=== PATIENT | female | born 1950 | race Caucasian/White ===

== ENCOUNTER 2020-04-24 11:08 | Emergency (ER) | payer MEDICARE, SELFPAY ==
[2020-04-24] VITALS (22 sets, daily range): BP systolic 156–184; BP diastolic 83–88; PULSE 72–98; RESP 20–33; TEMP 36.5–37.3; O2SAT 96–100
--- NOTE | 2020-04-24 11:00 | RT.EKG_ITS ---
APPROVED REPORT Exam: Resting ECG Patient Location: E HR:85 bpm ECG Measurements Heart Rate 85 AXIS NE 104 P 79 QRSd 82 QRS 70 QT 364 T 61 QTc 434 Conclusion Sinus rhythm...normal P axis, V-rate 60- [address] depression in II, III, aVF, V4-6. No acute ST elevation.
--- NOTE | 2020-04-24 11:07 | ED.GENADUL_ITS ---
Discharge Plan Disposition Patient Disposition: HOME Condition: Improving Discharge Details Chief Complaint: Nk/Back Pain Clinical Impression: Acute exacerbation of chronic low back pain, Dizziness Primary Care Provider: None,None ED Provider: Loulou Marquez Home Meds and New Rx's Prescriptions: New oxycodone 5 mg tablet 5 mg PO Q6H PRN (Reason: pain) Qty: 10 RF: 0 methocarbamol 500 mg tablet 500 mg PO Q6H PRN (Reason: muscle spasm) Qty: 14 RF: 0 lidocaine [Lidoderm] 5 % adhesive patch,medicated 1 patch TP DAILY PRN (Reason: pain) Qty: 15 RF: 0 Continued metformin 500 mg Tablet 500 mg PO DAILY RF: 0 trazodone 100 mg Tablet 100 mg PO QHS RF: 0 pantoprazole 40 mg Tablet,Delayed Release (Dr/Ec) 40 mg PO DAILY RF: 0 meclizine 25 mg Tablet,Chewable 25 mg PO DAILY PRNRF: 0 Xarelto 20 mg Tablet 20 mg PO QPM RF: 0 Trelegy Ellipta 100-62.5-25 mcg Blister With Device 1 inh INHALATION DAILY RF: 0 Discharge Instructions Instructions: Low Back Strain (ED), Dizziness (ED) Additional Instructions: Drink plenty of fluids and get plenty of rest. Take the oxycodone and methocarbamol as needed and directed for pain. You will receive a call from care management regarding a follow-up appointment with a primary care doctor to establish care. Return immediately to the emergency department if you develop any worsening or new concerning symptoms. Discharge Data Discharge Date/Time-TO BE ENTERED AT DEPARTURE: 04/24/20 17:55 Discharge Physician: Loulou Marquez Medical Decision Making 1115 -- 69-year-old female who recently moved here from [place] 5 days ago presents for acute exacerbation of her chronic low back pain and dizziness over the past few days. BP mildly hypertensive. She appears slightly uncomfortable but nontoxic. EKG notes a rate of 85, sinus, less than [address] depression in inferior lateral leads but no acute ST elevation. Her back is nontender without evidence of rash or trauma. She has no focal deficits. Her mucous membranes are dry. Differential diagnosis includes dehydration, electrolyte abnormality, arrhythmia, ACS, PE, ruptured AAA, acute on chronic back pain. We will check screening labs, urinalysis, CT head, chest abdomen and pelvis and give morphine and fluids and reassess. 1515 --labs and imaging reviewed. White blood cell count 13. Troponin negative. Urinalysis negative for infection. CT head and CT chest and abdomen negative for acute findings. AAA noted to be 4.2 cm. No evidence of PE. Patient reassessed and still complaining of lower back pain and some dizziness. Will finish liter of IV fluids, give another dose of morphine and tray of food and reassess. 1720 --patient reassessed. She was able to ambulate and denied any complaint of chest pain, shortness of breath and admitted to improvement of back pain. She feels much better and is requesting to go home. Patient placed on care management list to establish care with a PCP. She was given prescriptions for home. Usual and customary return precautions given prior to discharge. Medical Records Medical records reviewed: Yes I reviewed the patient's medical records. Imaging Data Radiologic Study: Radiologist's impression: CT HEAD WO CLINICAL HISTORY: dizziness, r/o acute cva. TECHNIQUE: Imaging Protocol: Axial computed tomography images with coronal and sagittal reformatted images were created and reviewed COMPARISON: No exams were available for comparison FINDINGS: The ventricular system is normal in appearance. No evidence of acute intracranial hemorrhage, mass effect, or midline shift. The orbital structures are unremarkable. The temporal bone structures appear intact. Calvarium: Normal. Visualized Paranasal sinuses/Mastoids: Clear. IMPRESSION: Normal cranial CT. CT THORAX ABD/PEL CTA CLINICAL HISTORY: back pain, h/o AAA TECHNIQUE: COMPARISON: No exams were available for comparison FINDINGS: CT angiography of chest abdomen and pelvis was performed with bolus infusion of 100 cc of Omnipaque 350. There are severe atheromatous changes thoracic and abdominal aorta. No thoracic aortic dissection or aneurysm. Suspect high-grade stenosis of left vertebral artery origin not ideally visualized. Remainder of the major vascular branches aortic arch appear grossly well maintained. No evidence of pulmonary embolic disease. No mediastinal or hilar adenopathy. Severe COPD noted. Tracheobronchial tree appears intact. No pleural effusion or pleural-based mass. There is no evidence pulmonary consolidation or mass. There is 42 millimeter in diameter infrarenal abdominal aortic aneurysm with significant mural thrombus. 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 Remainder of the major visceral branches appe ar fairly well maintained. The liver and spleen are grossly unremarkable. No gallbladder or bile duct abnormality by CT criteria. Pancreas is unremarkable. Adrenals appear normal bilaterally. There appears to be renal cortical thinning bilaterally. No significant abdominal wall hernia. No significant abdominal or pelvic adenopathy. Appendix is normal in appearance. No evidence of bowel obstruction or diverticulitis. Bilateral hip replacements noted. IMPRESSION: Severe pulmonary central lobular emphysematous change. No evidence of pulmonary embolic disease or pulmonary consolidation. 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 Lab Data Lab results reviewed: Yes I reviewed the patient's lab results. Labs: Laboratory Tests Range/Units 04/24/20 04/24/20 04/24/20 12:00 12:00 12:00 WBC (4.4-10.8) 10^3/uL 13.13 H RBC (3.93-5.22) 10^6/uL 4.36 Hgb (11.2-15.7) g/dL 12.3 Hct (36.0-46.0) % 40.9 MCV (80-95) fL 93.8 MCH (27.0-33.0) pg 28.2 MCHC (32.0-36.0) % 30.1 L RDW (11.7-14.6) % 13.3 Plt Count (130-400) 10^3/uL 286 MPV (8.0-11.0) fL 9.3 Immature Gran % 0.5 Neutrophils % 76.9 Lymphocytes % 12.6 Monocytes % 7.2 Eosinophils % 2.6 Basophils % 0.2 Absolute Neutrophils (1.2-6.7) 10^3/uL 10.10 H Absolute Lymphocytes (1.2-3.4) 10^3/uL 1.65 Absolute Monocytes (0.1-0.8) 10^3/uL 0.95 H Absolute Eosinophils (0.0-0.7) 10^3/uL 0.34 Absolute Basophils (0.0-0.2) 10^3/uL 0.03 PT (9.3-11.0) sec 10.4 INR (0.9-1.1) 1.0 APTT (21.0-31.4) sec 21.9 Sodium (136-145) mmol/L 141 Potassium (3.5-5.1) mmol/L 4.2 Chloride (98-107) mmol/L 106 Carbon Dioxide (21.0-32.0) mmol/L 26.2 Anion Gap (3-11) mmol/L 8.8 BUN (7-18) mg/dL 23 H Creatinine (0.55-1.02) mg/dL 1.12 H Estimated GFR/1.73 m2 (mL/min/1.73m2) 47.96 Glucose (74-106) mg/dL 104 Calcium (8.5-10.1) mg/dL 8.9 Magnesium (1.8-2.4) mg/dL 1.9 Total Bilirubin (0.2-1.0) mg/dL 0.3 AST (15-37) U/L 35 ALT (14-59) U/L 19 Alkaline Phosphatase (46-116) U/L 94 Troponin I (<0.06) ng/mL < 0.05 Total Protein (6.4-8.2) g/dL 6.8 Albumin (3.4-5.0) g/dL 3.4 Urine Color (Yellow) Urine Clarity (Clear) Urine pH (5-8) Ur Specific [place] (1.005-1.025) Urine Protein (Negative) mg/dL Urine Ketones (Negative) mg/dL Urine Blood (Negative) Urine Nitrite (Negative) Urine Bilirubin (Negative) Urine Urobilinogen (Up TO 0.2) EU/dL Ur Leukocyte Esterase (Negative) Urine RBC (0-2) HPF Urine WBC (0-5) HPF Ur Epithelial Cells (Negative) HPF Urine Crystals (Negative) HPF Urine Bacteria (Negative) HPF Urine Casts (Negative) LPF Urine Mucus (Negative) Urine Other (Negative) Ur Culture Indicated? Urine Glucose (Negative) mg/dL Range/Units 04/24/20 12:58 WBC (4.4-10.8) 10^3/uL RBC (3.93-5.22) 10^6/uL Hgb (11.2-15.7) g/dL Hct (36.0-46.0) % MCV (80-95) fL MCH (27.0-33.0) pg MCHC (32.0-36.0) % RDW (11.7-14.6) % Plt Count (130-400) 10^3/uL MPV (8.0-11.0) fL Immature Gran % Neutrophils % Lymphocytes % Monocytes % Eosinophils % Basophils % Absolute Neutrophils (1.2-6.7) 10^3/uL Absolute Lymphocytes (1.2-3.4) 10^3/uL Absolute Monocytes (0.1-0.8) 10^3/uL Absolute Eosinophils (0.0-0.7) 10^3/uL Absolute Basophils (0.0-0.2) 10^3/uL PT (9.3-11.0) sec INR (0.9-1.1) APTT (21.0-31.4) sec Sodium (136-145) mmol/L Potassium (3.5-5.1) mmol/L Chloride (98-107) mmol/L Carbon Dioxide (21.0-32.0) mmol/L Anion Gap (3-11) mmol/L BUN (7-18) mg/dL Creatinine (0.55-1.02) mg/dL Estimated GFR/1.73 m2 (mL/min/1.73m2) Glucose (74-106) mg/dL Calcium (8.5-10.1) mg/dL Magnesium (1.8-2.4) mg/dL Total Bilirubin (0.2-1.0) mg/dL AST (15-37) U/L ALT (14-59) U/L Alkaline Phosphatase (46-116) U/L Troponin I (<0.06) ng/mL Total Protein (6.4-8.2) g/dL Albumin (3.4-5.0) g/dL Urine Color (Yellow) Yellow Urine Clarity (Clear) Clear Urine pH (5-8) 5.5 Ur Specific [place] (1.005-1.025) >= 1.030 H Urine Protein (Negative) mg/dL Negative Urine Ketones (Negative) mg/dL Negative Urine Blood (Negative) Trace-intact H Urine Nitrite (Negative) Negative Urine Bilirubin (Negative) Negative Urine Urobilinogen (Up TO 0.2) EU/dL 0.2 Ur Leukocyte Esterase (Negative) Negative Urine RBC (0-2) HPF 3-5 H Urine WBC (0-5) HPF Negative Ur Epithelial Cells (Negative) HPF Rare Urine Crystals (Negative) HPF Negative Urine Bacteria (Negative) HPF Rare Urine Casts (Negative) LPF Negative Urine Mucus (Negative) Negative Urine Other (Negative) Negative Ur Culture Indicated? No Urine Glucose (Negative) mg/dL Negative ECG Data Attestation: I personally reviewed and interpreted this ECG (s) as follows: Interpretation: Rate of 85, sinus, less than [address] depression in 2 3 aVF and V3 through V6. No acute ST elevation. DE 104. QRS 82. QTc 434. HPI General Mode of arrival: EMS . Date/Time Provider Initiated Documentation: 04/24/20 11:09 . Limitations to Documentation: no limitations . Information obtained by: patient . HPI Narrative: Patient is a 69-year-old female with a history of chronic back pain for the past 20 years, known AAA and COPD who presents for back pain and dizziness that has been ongoing for weeks, worse today. Patient states she recently drove from [place] last week and has been here for the past 5 days. Patient states she drove from [place] to be a peer with her son indefinitely the remaining years of her life. She states on her way up from [place] she had a COVID test in [place] and [place] both of which were negative. She states this was done because she was having shortness of breath and dizziness. She states she was admitted to a hospital in [place] in November and diagnosed with bronchitis and PE. She states she is taking Xarelto regularly. She states she also had been on Percocet 10 mg 3 times a day for the past 18 years for her chronic back pain but this was stopped 2 months ago. She states she has been taking Tylenol without relief. She states she feels that her back pain is consistent with her chronic back pain which is located across her lower back and radiates down both of her legs which she is had for several years. She denies any bowel or bladder incontinence. She denies any paresthesias or saddle anesthesia. She states she has been eating normally but feels she may be not drinking as much as usual and may be dehydrated. She also admits to intermittent lightheadedness but denies any chest pain. She states she has shortness of breath when she gets up and walks around but thinks this may be due to her back pain. She denies any fever, cough, vomiting, diarrhea, urinary symptoms or abdominal pain. She is also on 2 L of nasal cannula oxygen throughout the day for her COPD. Related Data Home Medications Medication Instructions Recorded Confirmed Trelegy Ellipta 1 inh INHALATION DAILY 04/24/20 04/24/20 Xarelto 20 mg PO QPM 04/24/20 04/24/20 lidocaine [Lidoderm] 1 patch TP DAILY PRN #15 each 04/24/20 meclizine 25 mg PO DAILY PRN 04/24/20 04/24/20 metformin 500 mg PO DAILY 04/24/20 04/24/20 methocarbamol 500 mg PO Q6H PRN #14 tab 04/24/20 oxycodone 5 mg PO Q6H PRN #10 tab 04/24/20 pantoprazole 40 mg PO DAILY 04/24/20 04/24/20 trazodone 100 mg PO QHS 04/24/20 04/24/20 Previous Rx's Medication Instructions Recorded lidocaine [Lidoderm] 1 patch TP DAILY PRN #15 each 04/24/20 methocarbamol 500 mg PO Q6H PRN #14 tab 04/24/20 oxycodone 5 mg PO Q6H PRN #10 tab 04/24/20 Allergies Allergy/AdvReac Type Severity Reaction Status Date / Time No Known Allergies Allergy Unverified 04/24/20 14:40 Review of Systems All systems reviewed & are unremarkable except as noted in HPI and below Constitutional Constitutional: Reports as per HPI, Denies chills and Denies fever(s) Eyes Eyes: Denies blurry vision ENT Ears, Nose, Mouth, and Throat: Reports dizziness, Denies sore throat and Denies throat swelling Cardiovascular Cardiovascular: Denies chest pain and Reports dyspnea Respiratory Respiratory: Denies cough and Reports dyspnea Gastrointestinal Gastrointestinal: Denies abdominal pain, Denies diarrhea and Denies vomiting Genitourinary Genitourinary: Denies hematuria and Denies dysuria Musculoskeletal Musculoskeletal: Reports back pain and Denies numbness Integumentary/Breasts Skin/Breast: Denies lesions and Denies rash Neurologic Neurologic: Reports dizziness, Denies localized weakness and Denies numbness Allergic/Immunologic Allergic/Immunologic: Denies throat swelling [facility] Medical History (Updated 04/24/20 @ 16:52 by Loulou Marquez DO) AAA (abdominal aortic aneurysm) without rupture (Acute) Chronic back pain (Acute) COPD (chronic obstructive pulmonary disease) (Chronic) Surgical History (Updated 04/24/20 @ 13:32 by Loulou Marquez DO) History of hip replacement (Chronic) History of knee replacement (Chronic) Exam Const General: cooperative and no acute distress Orientation: alert, awake and oriented x3 HENMT Head: normal to inspection Ears: hearing grossly normal bilaterally, external ears normal and TM's normal bilaterally General nose exam: external nose normal Face and sinus: normal facial exam Mouth: mucous membranes dry Throat: posterior oropharynx normal Eyes General: appearance normal, both eyes and all related structures Eyelids: eyelids normal Pupils: PERRL EOM: EOM intact bilaterally Neck Neck: normal visual inspection Lymphatic: no lymphadenopathy noted Chest Chest: normal inspection of the chest Resp Effort & Inspection: normal respiratory effort and able to speak in complete sentences Auscultation: clear to auscultation bilaterally Cardio Rate: regular rate Rhythm: regular rhythm GI Inspection: normal to inspection Palpation: soft, not firm, no guarding, no hepatosplenomegaly, no masses and nontender Auscultation: normal bowel sounds Back/Spine/Pelvis Thoracic/Lumbar Spine: thoracic and lumbar spine normal to inspection, No paraspinal tenderness, No thoracic spinal tenderness and No lumbar spinal tenderness Pelvis: no pain with anterior-posterior compression Skin General skin exam: no rashes or lesions noted Neuro General: patient alert, patient awake and CN's II-XI intact bilaterally Cognition: normal cognition Speech: speech normal Gait: normal gait Motor: muscle tone normal throughout and strength 5/5 throughout Sensory Exam: no sensory deficits noted Extrem General: normal to inspection, full ROM and capillary refill normal Psych Appearance: grossly normal Mental Status: mental status grossly normal Speech and Movement: speech and movement normal Affect: normal affect Thought Process: normal
--- NOTE | 2020-04-24 11:30 | DI.CT_ITS ---
EXAM: CT HEAD WO CLINICAL HISTORY: dizziness, r/o acute cva. TECHNIQUE: Imaging Protocol: Axial computed tomography images with coronal and sagittal reformatted images were created and reviewed COMPARISON: No exams were available for comparison FINDINGS: The ventricular system is normal in appearance. No evidence of acute intracranial hemorrhage, mass effect, or midline shift. The orbital structures are unremarkable. The temporal bone structures appear intact. Calvarium: Normal. Visualized Paranasal sinuses/Mastoids: Clear. IMPRESSION: Normal cranial CT. RADIATION DOSE DELIVERED: 643.13mGy.cm Total DLP DATA REPOSITORY: All CT scans at this facility are submitted to the National Radiology Data Registry (NRDR) Dose Index Registry (DIR) with the [employer] (ACR). RADIATION OPTIMIZATION: All CT scans at this facility use at least one of these dose optimization te chniques: automated exposure control; mA and/or kV adjustment per patient size (includes targeted exa ms where dose is matched to clinical indication); or iterative reconstruction.
[2020-04-24] MEDS: Normal Saline 500 ML IV ×2 (12:06→15:44)
[2020-04-24 12:09] LABS: Abs Immature Grans 0.07 10^3/uL (0.0-0.06); Absolute Basophil Count 0.03 10^3/uL (0.0-0.2); Absolute Eosinophil Count 0.34 10^3/uL (0.0-0.7); Absolute Lymphocyte Count 1.65 10^3/uL (1.2-3.4); Absolute Monocyte Count 0.95 10^3/uL (0.1-0.8); Basophils % 0.2; Eosinophils % 2.6; HCT 40.9 % (36.0-46.0); HGB 12.3 g/dL (11.2-15.7); Immature Grans % 0.5; Lymphocytes % 12.6; MCH 28.2 pg (27.0-33.0); MCHC 30.1 % (32.0-36.0); MCV 93.8 fL (80-95); MPV 9.3 fL (8.0-11.0); Monocytes % 7.2; Neutrophils % 76.9; Nucleated RBC 0 %; Platelet Count 286 10^3/uL (130-400); RBC 4.36 10^6/uL (3.93-5.22); RDW 13.3 % (11.7-14.6); RDW-SD 45.5 fL; WBC 13.13 10^3/uL (4.4-10.8)
[2020-04-24 12:25] LABS: PTT Activated 21.9 sec (21.0-31.4); Prothrombin Time 10.4 sec (9.3-11.0)
[2020-04-24 12:32] LABS: ALT 19 U/L (14-59); AST 35 U/L (15-37); Albumin 3.4 g/dL (3.4-5.0); Alkaline Phosphatase 94 U/L (46-116); Anion Gap 8.8 mmol/L (3-11); Bilirubin, Total 0.3 mg/dL (0.2-1.0); CO2 26.2 mmol/L (21.0-32.0); CREATININE 1.12 mg/dL (0.55-1.02); Calcium 8.9 mg/dL (8.5-10.1); Chloride 106 mmol/L (98-107); Estimated GFR 47.96 (mL/min/1.73m2); Glucose 104 mg/dL (74-106); Magnesium 1.9 mg/dL (1.8-2.4); Potassium 4.2 mmol/L (3.5-5.1); Sodium 141 mmol/L (136-145); Total Protein 6.8 g/dL (6.4-8.2)
[2020-04-24 12:33] LABS: Troponin I < 0.05 ng/mL (<0.06)
[2020-04-24 12:39] LABS: BUN 23 mg/dL (7-18)
[2020-04-24 13:09] LABS: Bilirubin Negative (Negative); Blood Trace-intact (Negative); Clarity Clear (Clear); Glucose Negative (Negative); Ketones Negative (Negative); Leukocyte Esterase Negative (Negative); Nitrite Negative (Negative); Specific Gravity >= 1.030 (1.005-1.025); Urobilinogen 0.2 EU/dL (Up TO 0.2); pH 5.5 (5-8)
[2020-04-24 13:19] LABS: Bacteria Rare HPF (Negative); C & S Indicated? No; Casts Negative LPF (Negative); Crystals Negative HPF (Negative); Epithelial Cells Rare HPF (Negative); Mucus Negative (Negative); Other Cells Negative (Negative); WBC Negative HPF (0-5)
[2020-04-24] MEDS: Omnipaque 350 MG/ML 100 ML BTL IJ (13:24)
[2020-04-24] MEDS: Normal Saline - Diluent 50 ML VIAL IV (13:25)
--- NOTE | 2020-04-24 13:43 | DI.CT_ITS ---
EXAM: CT THORAX ABD/PEL CTA CLINICAL HISTORY: back pain, h/o AAA TECHNIQUE: COMPARISON: No exams were available for comparison FINDINGS: CT angiography of chest abdomen and pelvis was performed with bolus infusion of 100 cc of Omnipaque 3 50. There are severe atheromatous changes thoracic and abdominal aorta. No thoracic aortic dissection or aneurysm. Suspect high-grade stenosis of left vertebral artery origin not ideally visualized. Inez pankaj of the major vascular branches aortic arch appear grossly well maintained. No evidence of pulmonary embolic disease. No mediastinal or hilar adenopathy. Severe COPD noted. T racheobronchial tree appears intact. No pleural effusion or pleural-based mass. There is no evidence pulmonary consolidation or mass. There is 42 millimeter in diameter infrarenal abdominal aortic aneurysm with significant mural thromb us. 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 Remainder o f the major visceral branches appear fairly well maintained. The liver and spleen are grossly unremarkable. No gallbladder or bile duct abnormality by CT criteri a. Pancreas is unremarkable. Adrenals appear normal bilaterally. There appears to be renal cortica l thinning bilaterally. No significant abdominal wall hernia. No significant abdominal or pelvic adenopathy. Appendix is normal in appearance. No evidence of bowel obstruction or diverticulitis. Bilateral hip replacements noted. IMPRESSION: Severe pulmonary central lobular emphysematous change. No evidence of pulmonary embolic disease or pulmonary consolidation. Widespread atheromatous disease, 42 millimeter in diameter abdominal aortic aneurysm infrarenal, sten oses of origin of celiac trunk and probably of left vertebral artery origin noted.
[2020-04-24] MEDS: Lidocaine 5% Patch 1 PATCH TP (13:59)
[2020-04-24] MEDS: diazePAM 5 MG TAB PO (14:00)
--- NOTE | 2020-04-24 17:23 | NUR.NOTE ---
Referral to Care Management to establish pcp.Nursing Note:
--- NOTE | 2020-04-25 09:22 | CMPROGNOTE_ITS ---
- If Service Date Differs Date of service: 04/25/20 Time of Service: 09:22 Care Management Progress Note At ED provider's request, CM coordinates a referral to SUNNI Garsia, on-call doc, of [facility] to assist Nicol in obtaining a follow-up appointment and establishing care with a PCP.
== END 2020-04-24 17:55 | disposition home or self-care (01) ==
PROVIDERS: Emergency Provider Physician Assistant
DX: M54.5 Low back pain (principal); G89.29 Other chronic pain; R42 Dizziness and giddiness; I71.4 Abdominal aortic aneurysm, without rupture; Z79.01 Long term (current) use of anticoagulants; Z86.711 Personal history of pulmonary embolism; J44.9 Chronic obstructive pulmonary disease, unspecified; Z99.81 Dependence on supplemental oxygen
CPT/HCPCS: 36415; 71275; 74177; 80053; 93005; 96361; 96374; 96376; 99285; 70450; 81003; 81015; 83735; 84484; 85025; 85610; 85730; 93010; J3490

== ENCOUNTER 2020-04-26 08:20 | Outpatient (CLI) | payer MEDICARE, SELFPAY ==
[2020-04-27 18:30] LABS: COVID-19 RT-PCR Result NEGATIVE (Negative)
== END 2020-04-26 08:40 ==
PROVIDERS: Visit Provider Nurse Practitioner Family
DX: Z11.59 Encounter for screening for other viral diseases (principal)
CPT/HCPCS: U0003

== ENCOUNTER 2020-04-30 07:07 | Emergency (ER) | payer MEDICARE, SELFPAY ==
[2020-04-30] VITALS (43 sets, daily range): BP systolic 120–161; BP diastolic 51–105; PULSE 80–95; RESP 17–37; TEMP 36.6–36.7; O2SAT 97–100
--- NOTE | 2020-04-30 07:24 | ED.GENADUL_ITS ---
Discharge Plan Disposition Patient Disposition: HOME Condition: Improving Discharge Details Chief Complaint: Nk/Back Pain Clinical Impression: Chronic back pain, Vomiting and diarrhea Primary Care Provider: None,None ED Provider: Loulou Marquez Home Meds and New Rx's Prescriptions: New prednisone 20 mg tablet 60 mg PO DAILY 4 Days Qty: 12 RF: 0 ondansetron 4 mg tablet,disintegrating 4 mg PO TID PRN (Reason: nausea and vomiting) Qty: 6 RF: 0 Continued metformin 500 mg Tablet 500 mg PO DAILY RF: 0 trazodone 100 mg Tablet 100 mg PO QHS RF: 0 pantoprazole 40 mg Tablet,Delayed Release (Dr/Ec) 40 mg PO DAILY RF: 0 meclizine 25 mg Tablet,Chewable 25 mg PO DAILY PRNRF: 0 Xarelto 20 mg Tablet 20 mg PO QPM RF: 0 Trelegy Ellipta 100-62.5-25 mcg Blister With Device 1 inh INHALATION DAILY RF: 0 methocarbamol 500 mg tablet 500 mg PO Q6H PRN (Reason: muscle spasm) Qty: 14 RF: 0 lidocaine [Lidoderm] 5 % adhesive patch,medicated 1 patch TP DAILY PRN (Reason: pain) Qty: 15 RF: 0 Discharge Instructions Instructions: Acute Nausea and Vomiting (ED), Acute Diarrhea (ED), Chronic Back Pain (DC) Additional Instructions: Drink plenty of fluids and get plenty of rest. Take Tylenol as needed directed for pain. Take the prednisone until finished. Do the Zofran as needed and directed for nausea and vomiting. You will receive a call from care management regarding a follow-up appointment with a primary care doctor. You will also receive a call from the pain clinic regarding follow-up. A referral for home health was made. They will come to evaluate you at home regarding your needs. Return immediately to the emergency department if you develop any worsening or new concerning symptoms. Referrals: PAIN CLINIC,[facility] [OTHER] - 1 week Discharge Data Discharge Date/Time-TO BE ENTERED AT DEPARTURE: 04/30/20 12:57 Discharge Physician: Loulou Marquez Medical Decision Making <Scott Barahona MD - Last Filed: 04/30/20 07:35> 69 yo female with hx of PE on xarelto, chronic low back pain for which she was on oxycodone and suboxone but hasn't had these in two months, who just moved here from [place] within the past few weeks comes in with pain in the lower back and legs typical of her chronic pain and unchanged. Was seen in the ED on 04/24 and had labs and ct imaging which did not show any acute findings. She was d/c'd and referred for a pcp but continues to have pain so came here. She denies falls, chest pain, fevers, urinary renetion. She has no focal motor or sensation deficits and is able to bear weight. No saddle anesthesia and normal reflexes, no findings to suggest cauda equina or sea. She has no abdominal tednerness. She has no cva tenderness, no stepoffs and localizes the pain throughout the lumbar region. Has no rashes or warmth. no findings on history or exam to suggest infectious etiology such as osteo. She had recent ct imaging so do not feel additional imaging indicated at this time. Suspect her pain is due to being on opiates chronically and advised we can't treat chronic pain with opiates through the ED. She is willing to try prednisone as this could be related to arthritis and given she is on xarelto limits her ability to take nsaids. She is requesting to speak with CM for discussion on referrals to pcp, pain clinic and also possible home health pt signed out to oncoming provider pending CM review Differential Diagnosis Differential Diagnosis: muscle spasm, chronic pain, arthritis <Loulou Marquez DO - Last Filed: 04/30/20 16:31> 0800 --please see Dr. Barahona's note for initial presentation, exam and plan. Case endorsed for patient to follow-up with care management regarding assistance with PCP, pain clinic and home health. 0930 --care management discussed with patient at bedside. A referral to Dr. Laila Fuentes is in process. An order for pain clinic consultation was made. Home health paperwork completed. Prior to discharge, patient stated that she was really here for vomiting and diarrhea. Triage notes that patient was here for her chronic back pain and then vomited once in route. She states she had one episode of bilious vomiting and one episode of loose brown stool. She states she mainly came here for concern for dehydration. She was here 6 days ago and had labs, urinalysis and imaging all of which were negative for acute findings. She has an IV, will give a dose of Zofran, fluids, repeat labs and urinalysis and reassess. 1230 --labs and urinalysis reviewed and unremarkable. Patient was able to eat and feels better. We will send also with a prescription for Zofran. Advised to follow up with the primary care doctor for re-evaluation. Usual and customary return precautions given prior to discharge. Medical Records Medical records reviewed: Yes I reviewed the patient's medical records. Lab Data Lab results reviewed: Yes I reviewed the patient's lab results. Labs: Laboratory Tests Range/Units 04/30/20 04/30/20 04/30/20 10:20 10:20 12:10 WBC (4.4-10.8) 10^3/uL 9.19 RBC (3.93-5.22) 10^6/uL 4.02 Hgb (11.2-15.7) g/dL 11.4 Hct (36.0-46.0) % 37.1 MCV (80-95) fL 92.3 MCH (27.0-33.0) pg 28.4 MCHC (32.0-36.0) % 30.7 L RDW (11.7-14.6) % 13.2 Plt Count (130-400) 10^3/uL 250 MPV (8.0-11.0) fL 9.1 Immature Gran % 0.4 Neutrophils % 89.6 Lymphocytes % 4.9 Monocytes % 2.5 Eosinophils % 2.4 Basophils % 0.2 Absolute Neutrophils (1.2-6.7) 10^3/uL 8.23 H Absolute Lymphocytes (1.2-3.4) 10^3/uL 0.45 L Absolute Monocytes (0.1-0.8) 10^3/uL 0.23 Absolute Eosinophils (0.0-0.7) 10^3/uL 0.22 Absolute Basophils (0.0-0.2) 10^3/uL 0.02 Sodium (136-145) mmol/L 139 Potassium (3.5-5.1) mmol/L 4.3 Chloride (98-107) mmol/L 103 Carbon Dioxide (21.0-32.0) mmol/L 28.8 Anion Gap (3-11) mmol/L 7.2 BUN (7-18) mg/dL 14 Creatinine (0.55-1.02) mg/dL 1.20 H Estimated GFR/1.73 m2 (mL/min/1.73m2) 44.29 Glucose (74-106) mg/dL 126 H Calcium (8.5-10.1) mg/dL 9.4 Total Bilirubin (0.2-1.0) mg/dL 0.3 AST (15-37) U/L 36 ALT (14-59) U/L 21 Alkaline Phosphatase (46-116) U/L 102 Total Protein (6.4-8.2) g/dL 7.5 Albumin (3.4-5.0) g/dL 3.2 L Urine Color (Yellow) Yellow Urine Clarity (Clear) Clear Urine pH (5-8) 6.0 Ur Specific [place] (1.005-1.025) 1.025 Urine Protein (Negative) mg/dL Negative Urine Ketones (Negative) mg/dL Negative Urine Blood (Negative) Negative Urine Nitrite (Negative) Negative Urine Bilirubin (Negative) Negative Urine Urobilinogen (Up TO 0.2) EU/dL 0.2 Ur Leukocyte Esterase (Negative) Negative Urine Glucose (Negative) mg/dL Negative HPI <Scott Barahona MD - Last Filed: 04/30/20 07:35> General Mode of arrival: EMS . Date/Time Provider Initiated Documentation: 04/30/20 07:08 . Limitations to Documentation: no limitations . Information obtained by: patient . History of Present Illness 69 year old F presents to the emergency department with the chief complaint of chronic back pain, described as moderate, Patient started experiencing this year(s) (12) and it has been constant. No relieving factors improve symptom(s), No exacerbating factors reported . Related Data Home Medications Medication Instructions Recorded Confirmed Trelegy Ellipta 1 inh INHALATION DAILY 04/24/20 04/30/20 Xarelto 20 mg PO QPM 04/24/20 04/30/20 lidocaine [Lidoderm] 1 patch TP DAILY PRN #15 each 04/24/20 04/30/20 meclizine 25 mg PO DAILY PRN 04/24/20 04/30/20 metformin 500 mg PO DAILY 04/24/20 04/30/20 methocarbamol 500 mg PO Q6H PRN #14 tab 08/05/20 08/11/20 pantoprazole 40 mg PO DAILY 04/24/20 04/30/20 trazodone 100 mg PO QHS 04/24/20 04/30/20 ondansetron 4 mg PO TID PRN #6 tab 04/30/20 prednisone 60 mg PO DAILY 4 Days #12 tab 04/30/20 Previous Rx's Medication Instructions Recorded lidocaine [Lidoderm] 1 patch TP DAILY PRN #15 each 04/24/20 methocarbamol 500 mg PO Q6H PRN #14 tab 04/24/20 ondansetron 4 mg PO TID PRN #6 tab 04/30/20 prednisone 60 mg PO DAILY 4 Days #12 tab 04/30/20 Allergies Allergy/AdvReac Type Severity Reaction Status Date / Time No Known Allergies Allergy Unverified 04/24/20 14:40 General Stated Complaint: Nk/Back Pain SONJA: 3 Review of Systems <Scott Barahona MD - Last Filed: 04/30/20 07:35> All systems reviewed & are unremarkable except as noted in HPI and below Constitutional Constitutional: Denies chills, Denies fever(s) and Denies weakness Cardiovascular Cardiovascular: Denies chest pain and Denies dyspnea Respiratory Respiratory: Denies cough and Denies dyspnea Gastrointestinal Gastrointestinal: Denies abdominal pain, Denies nausea and Denies vomiting Musculoskeletal Musculoskeletal: Denies joint swelling Neurologic Neurologic: Denies weakness Psychiatric Psychiatric: Denies depression PFSH <Scott Barahona MD - Last Filed: 04/30/20 07:35> Medical History (Updated 04/30/20 @ 10:45 by Loulou Marquez DO) AAA (abdominal aortic aneurysm) without rupture (Acute) Chronic back pain (Acute) COPD (chronic obstructive pulmonary disease) (Chronic) Surgical History (Updated 04/24/20 @ 13:32 by Loulou Marquez DO) History of hip replacement (Chronic) History of knee replacement (Chronic) Social History Smoking/Tobacco Use Status: Former Tobacco Use Alcohol Intake: never Substance use type: does not use Do you feel safe at home: No Additional Social history: when asked if pt feels safe pt states well pt denies anyone is harming or threatening her. Exam <Scott Barahona MD - Last Filed: 04/30/20 07:35> Const General: no acute distress Orientation: alert HENMT Head: normal to inspection Ears: external ears normal General nose exam: external nose normal Mouth: moist mucous membranes Eyes General: appearance normal, both eyes and all related structures Neck Neck: normal visual inspection Resp Effort & Inspection: normal respiratory effort and able to speak in complete sentences Cardio Rate: regular rate Back/Spine/Pelvis Back: no CVA tenderness Skin General skin exam: no rashes or lesions noted Neuro General: patient alert and patient oriented x3 Extrem General: normal to inspection Psych Mental Status: mental status grossly normal Course <Scott Barahona MD - Last Filed: 04/30/20 07:35> Vital Signs Vital signs: Vital Signs Temperature 36.6 C 04/30/20 07:09 Pulse 92 H 04/30/20 07:09 Respiratory Rate 18 04/30/20 07:09 Blood Pressure 161/68 H 04/30/20 07:09 Pulse Oximetry 97 04/30/20 07:09 Temperature 36.6 C 04/30/20 07:09 Temperature Source Temporal Artery Scan 04/30/20 07:09 Pulse 92 H 04/30/20 07:09 Respiratory Rate 18 04/30/20 07:09 Respiratory Effort Non-Labored 04/30/20 07:15 Blood Pressure 161/68 H 04/30/20 07:09 Blood Pressure Position Sitting 04/30/20 07:09 Pulse Oximetry 97 04/30/20 07:09 Oxygen Delivery Method Nasal Cannula 04/30/20 07:09 Oxygen Flow Rate 2 04/30/20 07:09 Pain Level 10 04/30/20 07:09 Comment 04/30/20 07:09 Sign Out <Scott Barahona MD - Last Filed: 04/30/20 07:35> Sign Out Data: Sign Out Comment: chronic back pain awaiting care mangaement evaluation Last updated by Scott Barahona MD at 04/30/20 07:41
[2020-04-30] MEDS: predniSONE 20 MG TAB 60 MG PO (07:30)
[2020-04-30] MEDS: Ondansetron 4 MG/2 ML VIAL IVP (10:12)
[2020-04-30] MEDS: Normal Saline 1,000 ML 1000 ML IV (10:13)
[2020-04-30 10:27] LABS: Abs Immature Grans 0.04 10^3/uL (0.0-0.06); Absolute Basophil Count 0.02 10^3/uL (0.0-0.2); Absolute Eosinophil Count 0.22 10^3/uL (0.0-0.7); Absolute Lymphocyte Count 0.45 10^3/uL (1.2-3.4); Absolute Monocyte Count 0.23 10^3/uL (0.1-0.8); Absolute Neutrophil Count 8.23 10^3/uL (1.2-6.7); Basophils % 0.2; Eosinophils % 2.4; HCT 37.1 % (36.0-46.0); HGB 11.4 g/dL (11.2-15.7); Immature Grans % 0.4; Lymphocytes % 4.9; MCH 28.4 pg (27.0-33.0); MCHC 30.7 % (32.0-36.0); MCV 92.3 fL (80-95); MPV 9.1 fL (8.0-11.0); Monocytes % 2.5; Neutrophils % 89.6; Nucleated RBC 0 %; Platelet Count 250 10^3/uL (130-400); RBC 4.02 10^6/uL (3.93-5.22); RDW 13.2 % (11.7-14.6); RDW-SD 44.6 fL; WBC 9.19 10^3/uL (4.4-10.8)
[2020-04-30] MEDS: ACETAMINOPHEN 1,000 MG/100 ML BTL 400 MG IVPB (10:40)
[2020-04-30 10:43] LABS: ALT 21 U/L (14-59); AST 36 U/L (15-37); Albumin 3.2 g/dL (3.4-5.0); Alkaline Phosphatase 102 U/L (46-116); Anion Gap 7.2 mmol/L (3-11); BUN 14 mg/dL (7-18); Bilirubin, Total 0.3 mg/dL (0.2-1.0); CO2 28.8 mmol/L (21.0-32.0); Calcium 9.4 mg/dL (8.5-10.1); Chloride 103 mmol/L (98-107); Estimated GFR 44.29 (mL/min/1.73m2); Glucose 126 mg/dL (74-106); Potassium 4.3 mmol/L (3.5-5.1); Sodium 139 mmol/L (136-145); Total Protein 7.5 g/dL (6.4-8.2)
[2020-04-30 12:21] LABS: Bilirubin Negative (Negative); Blood Negative (Negative); Clarity Clear (Clear); Glucose Negative (Negative); Ketones Negative (Negative); Leukocyte Esterase Negative (Negative); Nitrite Negative (Negative); Specific Gravity 1.025 (1.005-1.025); Urobilinogen 0.2 EU/dL (Up TO 0.2)
--- NOTE | 2020-04-30 16:23 | PDOC.ERCMPRO ---
- If Service Date Differs Date of service: 04/30/20 Time of Service: 16:23 Care Management Progress Note S/O: Nicol is a 69 year old woman who presented to the ED for the second time within a week for chronic back pain and a lack of connection to community services. CM was asked by ED provider to meet with patient and try to help her establish with a PCP and other community resources. Nicol was sitting up on her stretcher grimacing in pain when CM met with her. She shared that she has recently (within 2 weeks) moved from [place] and has no PCP. She does have a long history of chronic back pain and has had a variety of treatments for this including acupuncture and medical management. None of these have been successful according to Nicol. She is currently staying with friends awaiting her Covid test results (now known to be negative) but will be moving in with her son tomorrow. After her ED visit last week, attempts were made to get Nicol connected with the Telephone doctor of the day (Laila Fuentes) but this was unsuccessful. P: After several visits with Nicol and a series of phone calls, CM was able to confirm an appointment for Nicol with a [facility] provider for Wednesday05/03/20. The ED provider will order a referral to the [facility] to address her chronic pain issues and a referral has been sent to [facility] for Home Health Nursing and PT. This may not be initiated until after the initial visit with the new primary care practice, which has been shared with Nicol..
== END 2020-04-30 12:57 | disposition home or self-care (01) ==
PROVIDERS: Emergency Provider Physician Assistant; PCP Nurse Practitioner Family
DX: M54.5 Low back pain (principal); G89.29 Other chronic pain; R11.2 Nausea with vomiting, unspecified; R19.7 Diarrhea, unspecified; Z79.01 Long term (current) use of anticoagulants; Z86.711 Personal history of pulmonary embolism; J44.9 Chronic obstructive pulmonary disease, unspecified; Z87.891 Personal history of nicotine dependence
CPT/HCPCS: 36415; 80053; 96361; 96365; 96375; 99284; 81003; 85025; J0131; J2405; J7512

== ENCOUNTER → 2020-06-03 10:41 | Outpatient (BNVA) | payer MEDICARE, SELFPAY | PROVIDERS: PCP Nurse Practitioner Family; Referring Provider Nurse Practitioner Family; Visit Provider Surgery | DX: K21.9 Gastro-esophageal reflux disease without esophagitis (principal); I12.9 Hypertensive chronic kidney disease with stage 1 through stage 4 chronic kidney disease, or unspecified chronic kidney disease; N18.3 Chronic kidney disease, stage 3 (moderate); E11.22 Type 2 diabetes mellitus with diabetic chronic kidney disease; J44.9 Chronic obstructive pulmonary disease, unspecified | CPT/HCPCS: 99203; 99214 ==